=== PATIENT | female | born 1965 | race Caucasian/White ===

== ENCOUNTER 2019-03-09 08:48 | Day surgery (SDC) | payer OTHER ==
[2019-03-09] MEDS ORDERED: MIDAZOLAM 1 MG/ML 2 ML INJ ×3 (12:30→12:31)
[2019-03-09] MEDS ORDERED: FENTAnyl 50 MCG/ML VIAL (12:30)
== END 2019-03-09 14:58 | disposition home or self-care (01) ==
LOC: GIL 08:48
DX: Z12.11 Encounter for screening for malignant neoplasm of colon (principal); D12.6 Benign neoplasm of colon, unspecified; K64.8 Other hemorrhoids; K57.30 Diverticulosis of large intestine without perforation or abscess without bleeding; K44.9 Diaphragmatic hernia without obstruction or gangrene; K21.9 Gastro-esophageal reflux disease without esophagitis
CPT/HCPCS: 43239; 88305; 88312